=== PATIENT | male | born 1980 | race Two or more races ===

== ENCOUNTER 2021-07-16 21:13 | Emergency (ER) | payer SELFPAY ==
[~2021-07-16] VITALS: Ht 177.8 cm; Wt 72.6 kg
[2021-07-16 21:38] VITALS: BP 130/78
--- NOTE | 2021-07-16 22:12 | NUR ---
CALLED PT TO THE ROOM . NO ANSWER
--- NOTE | 2021-07-16 22:36 | NUR ---
CALLED PT IN. NO ANSWER
--- NOTE | 2021-07-16 23:10 | NUR ---
CALLED PT IN TO THE ROOM. NO ANSWER
--- NOTE | 2021-07-17 02:37 | NUR ---
CALLED PT IN TO ER ROOM. NO ANSWER
== END 2021-07-17 03:37 | disposition left against medical advice (07) ==
LOC: ER 21:14
DX: Z53.21 Procedure and treatment not carried out due to patient leaving prior to being seen by health care provider (principal)